=== PATIENT | male | born 1960 | race Caucasian/White ===

== ENCOUNTER 2017-02-05 14:26 | Inpatient (IN) | payer OTHER ==
[2017-02-05 16:48] VITALS: BMI 23.3
--- NOTE | 2017-02-05 18:28 | HP ---
COWS - Scale Resting Pulse: 0= [place] 80 or Below Sweatin=Flushed/Facial Moisture Restless Observation: 3= Extraneous Movement Pupil Size: 2= Moderately Dilated Bone or Joint Aches: 2= Severe Diffuse Aches Runny Nose/ Eye Tearin= Runny Nose/Eyes GI Upset > 30mins: 3= Vomiting/Diarrhea Tremor Observation: 2= Slight Tremor Visible Yawning Observation: 2= >3x During Session Anxiety or Irritability: 2=Irritable/Anxious Goose Flesh Skin: 0=Smooth Skin COWS Score: 20 Admission ROS BHS - HPI Chief Complaint: i need help to stop using heroin Allergies/Adverse Reactions: Allergies Allergy/AdvReac Type Severity Reaction Status Date / Time No Known Allergies Allergy Verified 02/05/17 16:50 History of Present Illness: this 56 years old male with heroin dependence and marijuana dependence,seeking detox,last treatment [facility] low back pain herniated disc ambulation with walker insomnia no significant period of sobriety Exam Limitations: No Limitations - Ebola screening Have you traveled outside of the country in the last 21 days: No Have you been sick,other than usual withdrawal symptoms: No - Review of Systems Constitutional: Chills, Loss of Appetite, Night Sweats, Changes in sleep, Weakness, Unintentional Wgt. Loss EENT: reports: Tearing, Nose Congestion Respiratory: reports: Other (asthma on albuterol inhaler) Cardiac: reports: No Symptoms Reported GI: reports: Diarrhea, Nausea, Vomiting, Abdominal cramping : reports: No Symptoms Reported Musculoskeletal: reports: Back Pain, Joint Pain, Muscle Pain, Joint Stiffness Integumentary: reports: Dryness Neuro: reports: Headache, Tremors Hematology: reports: No Symptoms Reported Psychiatric: reports: other (insomnia) Patient History - Patient Medical History Hx Anemia: No Hx Asthma: Yes (on albuterol inhaler) Hx Chronic Obstructive Pulmonary Disease (COPD): No Hx Cancer: No Hx Cardiac Disorders: No Hx Congestive Heart Failure: No Hx Hypertension: No Hx Hypercholesterolemia: No Hx Pacemaker: No HX Cerebrovascular Accident: No Hx Seizures: No Hx Dementia: No Hx Diabetes: No Hx Gastrointestinal Disorders: No Hx Liver Disease: No Hx Genitourinary Disorders: No Hx Sexually Transmitted Disorders: No Hx Renal Disease (ESRD): No Hx Thyroid Disease: No Hx Human Immunodeficiency Virus (HIV): No (01/28 negative) Hx Hepatitis C: No Hx Depression: No Hx Suicide Attempt: No Hx Bipolar Disorder: Yes Hx Schizophrenia: No Other Medical History: no suicidal,no homicidal - Patient Surgical History Past Surgical History: No Hx Neurologic Surgery: No Hx Cataract Extraction: No Hx Cardiac Surgery: No Hx Lung Surgery: No Hx Breast Surgery: No Hx Breast Biopsy: No Hx Abdominal Surgery: No Hx Appendectomy: No Hx Cholecystectomy: No Hx Genitourinary Surgery: No Hx Section: No Hx Orthopedic Surgery: No Anesthesia Reaction: No - PPD History Previous Implant?: Yes Documented Results: Negative w/o proof [facility] No PPD to be Administered?: Yes - Smoking Cessation Smoking history: Current every day smoker Have you smoked in the past 12 months: Yes Aproximately how many cigarettes per day: 20 Hx Chewing Tobacco Use: No Initiated information on smoking cessation: Yes 'Breaking Loose' booklet given: 02/05/17 - Substance & Tx. History Hx Alcohol Use: No Hx Substance Use: No Substance Use Type: Heroin, Marijuana Hx Substance Use Treatment: Yes (last [facility] 12/29 completed) - Substances Abused Heroin Route: Inhalation Frequency: Daily Amount used: 15 BAGS Age of first use: 19 Date of Last Use: 02/05/17 Marijuana/Hashish Route: Smoking Frequency: Daily Amount used: 10$ Age of first use: 19 Date of Last Use: 02/05/17 Family Disease History - Family Disease History Family History: Denies Admission Physical Exam S - Vital Signs Vital Signs: Vital Signs - 24 hr 02/05/17 16:46 Temperature 98.1 F Pulse Rate 60 Respiratory 18 Rate Blood Pressure 122/68 - Physical General Appearance: Yes: Moderate Distress, Tremorous, Irritable, Sweating, Anxious HEENTM: Yes: Normal ENT Inspection, SINCERE, Pharynx Normal Respiratory: Yes: Lungs Clear, Normal Breath Sounds, No Respiratory Distress Neck: Yes: Within Normal Limits, Supple, Trachea in good position Breast: Yes: Within Normal Limits Cardiology: Yes: Regular Rhythm, Regular Rate, S1, S2 Abdominal: Yes: Within Normal Limits, Normal Bowel Sounds, Non Tender, Soft Genitourinary: Yes: Within Normal Limits Back: Yes: Muscle Spasm Musculoskeletal: Yes: Back pain, Joint Stiffness, Muscle Pain Extremities: Yes: Tremors Neurological: Yes: product consultant II-XII NML intact, Alert, Motor Strength 5/5, Normal Mood /Affect Integumentary: Yes: Normal Color, Dry, Warm Lymphatic: Yes: Within Normal Limits - Diagnostic (1) Opioid dependence with withdrawal Current Visit: Yes Status: Acute (2) Cannabis dependence Current Visit: Yes Status: Acute (3) Bipolar disorder Current Visit: Yes Status: Acute (4) Insomnia Current Visit: Yes Status: Acute (5) Low back pain Current Visit: Yes Status: Acute (6) Herniated lumbar intervertebral disc Current Visit: Yes Status: Acute (7) Nicotine dependence Current Visit: Yes Status: Acute Cleared for Admission [facility] - Detox or Rehab [facility] Level of Care: Medically Managed Detox Regimen/Protocol: Methadone [facility] Breath Alcohol Content Breath Alcohol Content: 0 Urine Drug Screen - Results Drug Screen Negative: No Urine Drug Screen Results: THC-Marijuana, OPI-Opiates
[2017-02-05] MEDS ORDERED: MAG HYDROX/AL HYDROX/SIMETH 30 ML UNIT-DOSE CUP PO PRN (18:39)
[2017-02-05] MEDS ORDERED: hydrOXYzine PAMOATE 25 MG CAPSULE (FP) PO PRN (18:39)
[2017-02-05] MEDS ORDERED: guaiFENesin/D-METHORPHAN HB 10 ML UNIT-DOSE CUPS PO PRN (18:39)
[2017-02-05] MEDS ORDERED: MAGNESIUM HYDROX 2400MG/30ML ORAL SUSPENSION 30 ML CUP PO PRN (18:39)
[2017-02-05] MEDS ORDERED: P-EPHED 60MG/TRIPROLIDI 2.5MG TABLET PO PRN (18:39)
[2017-02-05] MEDS ORDERED: ACETAMINOPHEN 325 MG TABLET (FP) PO PRN (18:39)
[2017-02-05] MEDS ORDERED: MENTHOL/PHENOL 1 EACH UD MM PRN (18:39)
[2017-02-05] MEDS ORDERED: MAGNESIUM CITRATE 300 ML BOTTLE PO PRN (18:39)
[2017-02-05] MEDS ORDERED: LOPERAMIDE HCL 2 MG CAPSULE PO PRN (18:39)
[2017-02-05] MEDS ORDERED: IBUPROFEN 400 MG TABLET (FP) PO PRN (18:39)
[2017-02-05] MEDS ORDERED: METHADONE HCL 10 MG TABLET (FOR DETOX USE ONLY) PO ONE ×2 (19:00→23:00)
[2017-02-05] MEDS: NICOTINE 21 MG/24 HOURS TOPICAL PATCH TD SCH (20:11)
[2017-02-05] MEDS: THIAMINE HCL 100 MG TABLET (FP) PO SCH (22:38)
[2017-02-05] MEDS: cloNIDine HCL 0.1 MG TABLET PO SCH (22:38)
[2017-02-05] MEDS: diphenhydrAMINE HCL 50 MG CAPSULE PO PRN (22:40)
[2017-02-05 23:28] LABS: URINE APPEARANCE SLCLOUDY; URINE BILIRUBIN NEGATIVE (NEGATIVE); URINE BLOOD NEGATIVE (NEGATIVE); URINE COLOR YELLOW; URINE GLUCOSE (UA) NEGATIVE (NEGATIVE); URINE KETONE NEGATIVE (NEGATIVE); URINE LEUK ESTERASE NEGATIVE (NEGATIVE); URINE NITRITE NEGATIVE (NEGATIVE); URINE PROTEIN NEGATIVE (NEGATIVE); URINE UROBILINOGEN NEGATIVE mg/dL (0.2-1.0)
[2017-02-06] MEDS: diphenhydrAMINE HCL 50 MG CAPSULE PO PRN ×2 (02:38→22:12)
[2017-02-06] MEDS: diazePAM 5 MG TABLET PO PRN ×4 (02:38→22:12)
[2017-02-06] MEDS ORDERED: PRENATAL VITAMINS W/ FOLIC ACID TABLET (FP) PO SCH (10:00)
[2017-02-06] MEDS ORDERED: METHADONE HCL 10 MG TABLET (FOR DETOX USE ONLY) PO ONE (10:00)
[2017-02-06 10:21] LABS: MCHC 34.1 g/dl (32.0-35.9); MEAN CELL VOLUME 93.7 fl (80-96); MEAN PLT VOLUME 8.9 fl (7.5-11.1); PLATELET COUNT 231 K/MM3 (134-434); RDW 14.7 % (11.9-15.9); WHITE BLOOD COUNT 7.2 K/mm3 (4.0-10.0)
--- NOTE | 2017-02-06 10:25 | CONSULT ---
[facility] Psychiatric Consult - Data Date of interview: 02/06/17 Admission source: [facility] Identifying data: This is 56 years old male ambul;ating with walker, with history opf Bipolar disorder, with history of p[sychiatgric hospitalizations, intoxicated with: Heroin, Cannabis, Nicotine Substance Abuse History: - Smoking Cessation. Smoking history: Current every day smoker. Have you smoked in the past 12 months: Yes. Aproximately how many cigarettes per day: 20. Hx Chewing Tobacco Use: No. Initiated information on smoking cessation: Yes. 'Breaking Loose' booklet given: 02/05/17. - Substance & Tx. History. Hx Alcohol Use: No. Hx Substance Use: No. Substance Use Type: Heroin, Marijuana. Hx Substance Use Treatment: Yes (last [facility] 12/29 completed). - Substances Abused. Heroin. Route: Inhalation. Frequency: Daily. Amount used: 15 BAGS. Age of first use: 19. Date of Last Use: . Marijuana/Hashish. Route: Smoking. Frequency: Daily. Amount used: 10$ . Age of first use: 19. Date of Last Use: 02/05/17 Medical History: LBP, Multiple disks herniations at Lumbar area Psychiatric History: Patient reports to carry Bipolar Disorder with most recent psychiatric admission on 2015 at [facility] for safety, reports history of suicdal ideation and ettempts, with last one on [place] 3 years ago trying hailey hand himself, reports not using psychiatric medications for about a year, refusing pharmacological intervention at this time as well Physical/Sexual Abuse/Trauma History: Denies Additional Comment: Observation. Detox Unit Care Protocol Mental Status Exam - Mental Status Exam Alert and Oriented to: Person Cognitive Function: Fair Patient Appearance: Well Groomed Mood: Apprehensive Affect: Mood Congruent Patient Behavior: Cooperative Speech Pattern: Appropriate Voice Loudness: Normal Thought Process: Goal Oriented Thought Disorder: Being Controlled Hallucinations: Denies Suicidal Ideation: Denies Homicidal Ideation: Denies Insight/Judgement: Fair Sleep: Difficulty falling asleep Appetite: Weight loss Muscle strength/Tone: Moderate Hypotonicity Gait/Station: Ataxic Additional Comments: Observation. Detox Unit Care Protocol Psychiatric Findings - Problem List ([place] 1, 2,3) (1) Bipolar disorder Current Visit: Yes Status: Acute (2) Cannabis dependence Current Visit: Yes Status: Acute (3) Nicotine dependence Current Visit: Yes Status: Acute (4) Opioid dependence with withdrawal Current Visit: Yes Status: Acute (5) Drug-induced mood disorder Current Visit: Yes Status: Acute - Initial Treatment Plan Initial Treatment Plan: Observation. Detox Unit Care Protocol
[2017-02-06 10:45] LABS: ALBUMIN 2.9 g/dl (3.4-5.0); ALK PHOS 186 U/L (45-117); ANION GAP 6 (8-16); BILIRUBIN,TOTAL 0.3 mg/dL (0.2-1.0); CALCIUM 8.4 mg/dL (8.5-10.1); CO2 30 mmol/L (21-32); CREATININE 0.7 mg/dL (0.7-1.3); GLUCOSE,RANDOM 116 mg/dL (74-106); SGOT/AST 31 U/L (15-37); SGPT/ALT 53 U/L (12-78)
[2017-02-06] MEDS: NICOTINE 21 MG/24 HOURS TOPICAL PATCH TD SCH (11:05)
[2017-02-06] MEDS: CYCLOBENZAPRINE HCL 10 MG TABLET (FP) PO PRN ×2 (11:05→22:12)
[2017-02-06] MEDS: cloNIDine HCL 0.1 MG TABLET PO SCH ×2 (11:07→22:12)
--- NOTE | 2017-02-06 12:09 | PN ---
BHS COWS - Scale Resting Pulse: 0= [place] 80 or Below Sweatin= Chills/Flushing Restless Observation: 3= Extraneous Movement Pupil Size: 1= Pupils >than Normal Bone or Joint Aches: 2= Severe Diffuse Aches Runny Nose/ Eye Tearin= Runny Nose/Eyes GI Upset > 30mins: 2= Nausea/Diarrhea Tremor Observation of Outstretched Hands: 2= Slight Tremor Visible Yawning Observation: 1= 1-2x During Session Anxiety or Irritability: 2=Irritable/Anxious Goose Flesh Skin: 0=Smooth Skin COWS Score: 16 S Progress Note (SOAP) Subjective: ALERT,IRRITABLE,ANXIOUS,INTERRUPTED SLEEP,PAIN IN THE BODY AND BACK Objective: 02/06/17 12:07 Vital Signs Temperature 97.5 F L 02/06/17 10:05 Pulse Rate 52 L 02/06/17 10:05 Respiratory Rate 16 02/06/17 10:05 Blood Pressure 109/59 02/06/17 10:05 O2 Sat by Pulse Oximetry (%) EKG SINUS BRADYCARDIA 42/MIN NO CHEST PAIN,NO SOB,NO DIZZINESS Laboratory Last Values WBC 7.2 K/mm3 (4.0-10.0) 02/06/17 06:30 RBC 4.01 M/mm3 (4.00-5.60) 02/06/17 06:30 Hgb 12.8 GM/dL (11.7-16.9) 02/06/17 06:30 Hct 37.5 % (35.4-49) 02/06/17 06:30 MCV 93.7 fl (80-96) 02/06/17 06:30 MCH 32.0 pg (25.7-33.7) 02/06/17 06:30 MCHC 34.1 g/dl (32.0-35.9) 02/06/17 06:30 RDW 14.7 % (11.9-15.9) 02/06/17 06:30 Plt Count 231 K/MM3 (134-434) 02/06/17 06:30 MPV 8.9 fl (7.5-11.1) 02/06/17 06:30 Sodium 141 mmol/L (136-145) 02/06/17 06:30 Potassium 3.5 mmol/L (3.5-5.1) 02/06/17 06:30 Chloride 105 mmol/L (98-107) 02/06/17 06:30 Carbon Dioxide 30 mmol/L (21-32) 02/06/17 06:30 Anion Gap 6 (8-16) L 02/06/17 06:30 BUN 7 mg/dL (7-18) 02/06/17 06:30 Creatinine 0.7 mg/dL (0.7-1.3) 02/06/17 06:30 Creat Clearance w eGFR > 60 (>60) 02/06/17 06:30 Random Glucose 116 mg/dL (74-106) H 02/06/17 06:30 Calcium 8.4 mg/dL (8.5-10.1) L 02/06/17 06:30 Total Bilirubin 0.3 mg/dL (0.2-1.0) 02/06/17 06:30 AST 31 U/L (15-37) 02/06/17 06:30 ALT 53 U/L (12-78) 02/06/17 06:30 Alkaline Phosphatase 186 U/L (45-117) H 02/06/17 06:30 Total Protein 6.0 g/dl (6.4-8.2) L 02/06/17 06:30 Albumin 2.9 g/dl (3.4-5.0) L 02/06/17 06:30 Urine Color Yellow 02/05/17 20:00 Urine Appearance Slcloudy 02/05/17 20:00 Urine pH 8.0 (5.0-8.0) 02/05/17 20:00 Ur Specific [place] 1.020 (1.005-1.025) 02/05/17 20:00 Urine Protein Negative (NEGATIVE) 02/05/17 20:00 Urine Glucose (UA) Negative (NEGATIVE) 02/05/17 20:00 Urine Ketones Negative (NEGATIVE) 02/05/17 20:00 Urine Blood Negative (NEGATIVE) 02/05/17 20:00 Urine Nitrite Negative (NEGATIVE) 02/05/17 20:00 Urine Bilirubin Negative (NEGATIVE) 02/05/17 20:00 Urine Urobilinogen Negative mg/dL (0.2-1.0) 02/05/17 20:00 Ur Leukocyte Esterase Negative (NEGATIVE) 02/05/17 20:00 RPR Titer Nonreactive (NONREACTIVE) 02/06/17 06:30 Assessment: 02/06/17 12:08 WITHDRAWAL SYMPTOM Plan: CONTINUE DETOX
--- NOTE | 2017-02-06 12:23 | EKG ---
Test Reason : Blood Pressure : / mmHG Vent. Rate : 041 BPM Atrial Rate : 041 BPM P-R Int : 170 ms QRS Dur : 096 ms QT Int : 466 ms P-R-T Axes : 047 064 030 degrees QTc Int : 384 ms MARKED SINUS BRADYCARDIA INCOMPLETE RIGHT BUNDLE BRANCH BLOCK NONSPECIFIC T WAVE ABNORMALITY ABNORMAL ECG NO PREVIOUS ECGS AVAILABLE Confirmed by MINGO JOHNSON MD ([id number]) on 02/06/2017 12:22:52 PM Referred By: Confirmed By:MINGO JOHNSON MD
[2017-02-06] MEDS: THIAMINE HCL 100 MG TABLET (FP) PO SCH (22:12)
[2017-02-07] MEDS ORDERED: IBUPROFEN 600 MG TABLET (FP) PO PRN (08:04)
[2017-02-07] MEDS: CYCLOBENZAPRINE HCL 10 MG TABLET (FP) PO PRN (08:07)
[2017-02-07] MEDS ORDERED: LIDOCAINE 5% TOPICAL PATCH TP SCH (10:00)
[2017-02-07] MEDS ORDERED: METHADONE HCL 5 MG TABLET (FOR DETOX USE ONLY) PO ONE (10:00)
--- NOTE | 2017-02-07 10:12 | PN ---
S CIWA - CIWA Score Nausea/Vomitin Muscle Tremors: 3 Anxiety: 3 Agitation: 3 Paroxysmal Sweats: 1-Minimal Palms Moist Orientation: 0-Oriented Tacttile Disturbances: 1-Very Mild Itch/Numbness Auditory Disturbances: 1-Very Mild Visual Disturbances: 1-Very Mild Sensitivity Headache: 2-Mild CIWA-Ar Total Score: 18 BHS COWS - Scale Resting Pulse: 0= [place] 80 or Below Sweatin= Chills/Flushing Restless Observation: 3= Extraneous Movement Pupil Size: 1= Pupils >than Normal Bone or Joint Aches: 2= Severe Diffuse Aches Runny Nose/ Eye Tearin= Runny Nose/Eyes GI Upset > 30mins: 2= Nausea/Diarrhea Tremor Observation of Outstretched Hands: 2= Slight Tremor Visible Yawning Observation: 1= 1-2x During Session Anxiety or Irritability: 2=Irritable/Anxious Goose Flesh Skin: 0=Smooth Skin COWS Score: 16 S Progress Note (SOAP) Subjective: ALERT,IRRITABLE,ANXIOUS,INTERRUPTED SLEEP,TREMOR Objective: 02/07/17 10:11 Vital Signs Temperature 97 F L 02/07/17 07:01 Pulse Rate 52 L 02/07/17 07:01 Respiratory Rate 16 02/07/17 07:01 Blood Pressure 131/69 02/07/17 07:01 O2 Sat by Pulse Oximetry (%) Laboratory Last Values WBC 7.2 K/mm3 (4.0-10.0) 02/06/17 06:30 RBC 4.01 M/mm3 (4.00-5.60) 02/06/17 06:30 Hgb 12.8 GM/dL (11.7-16.9) 02/06/17 06:30 Hct 37.5 % (35.4-49) 02/06/17 06:30 MCV 93.7 fl (80-96) 02/06/17 06:30 MCH 32.0 pg (25.7-33.7) 02/06/17 06:30 MCHC 34.1 g/dl (32.0-35.9) 02/06/17 06:30 RDW 14.7 % (11.9-15.9) 02/06/17 06:30 Plt Count 231 K/MM3 (134-434) 02/06/17 06:30 MPV 8.9 fl (7.5-11.1) 02/06/17 06:30 Sodium 141 mmol/L (136-145) 02/06/17 06:30 Potassium 3.5 mmol/L (3.5-5.1) 02/06/17 06:30 Chloride 105 mmol/L (98-107) 02/06/17 06:30 Carbon Dioxide 30 mmol/L (21-32) 02/06/17 06:30 Anion Gap 6 (8-16) L 02/06/17 06:30 BUN 7 mg/dL (7-18) 02/06/17 06:30 Creatinine 0.7 mg/dL (0.7-1.3) 02/06/17 06:30 Creat Clearance w eGFR > 60 (>60) 02/06/17 06:30 Random Glucose 116 mg/dL (74-106) H 02/06/17 06:30 Calcium 8.4 mg/dL (8.5-10.1) L 02/06/17 06:30 Total Bilirubin 0.3 mg/dL (0.2-1.0) 02/06/17 06:30 AST 31 U/L (15-37) 02/06/17 06:30 ALT 53 U/L (12-78) 02/06/17 06:30 Alkaline Phosphatase 186 U/L (45-117) H 02/06/17 06:30 Total Protein 6.0 g/dl (6.4-8.2) L 02/06/17 06:30 Albumin 2.9 g/dl (3.4-5.0) L 02/06/17 06:30 Urine Color Yellow 02/05/17 20:00 Urine Appearance Slcloudy 02/05/17 20:00 Urine pH 8.0 (5.0-8.0) 02/05/17 20:00 Ur Specific [place] 1.020 (1.005-1.025) 02/05/17 20:00 Urine Protein Negative (NEGATIVE) 02/05/17 20:00 Urine Glucose (UA) Negative (NEGATIVE) 02/05/17 20:00 Urine Ketones Negative (NEGATIVE) 02/05/17 20:00 Urine Blood Negative (NEGATIVE) 02/05/17 20:00 Urine Nitrite Negative (NEGATIVE) 02/05/17 20:00 Urine Bilirubin Negative (NEGATIVE) 02/05/17 20:00 Urine Urobilinogen Negative mg/dL (0.2-1.0) 02/05/17 20:00 Ur Leukocyte Esterase Negative (NEGATIVE) 02/05/17 20:00 RPR Titer Nonreactive (NONREACTIVE) 02/06/17 06:30 Assessment: 02/07/17 10:11 WITHDRAWAL SYMPTOM Plan: CONTINUE DETOX
--- NOTE | 2017-02-07 10:17 | PN ---
[facility] Progress Note Note: ADDENDUM PATIENT DID NOT WANT TO COMPLETE TREATMENT,SEEN BY COUNSELOR,DID NOT WANT TO GIVE REASON WHY HE IS LEAVING,SIGNED RELEASE AMA
--- NOTE | 2017-02-07 10:30 | DS ---
[facility] Detox Discharge Summary Admission Date: 02/05/17 Discharge Date: 02/07/17 - History Present History: Cannabis Dependence, Opioid Dependence Additional Comments: PATIENT DID NOT WANT TO COMPLETE TREATMENT,SEEN BY COUNSELOR,SIGNED RELEASE AMA Pertinent Past History: LOW BACK PAIN HERNIATED LUMBAR DISC NICOTINE DEPENDENCE BIPOLAR DISORDER INSOMNIA - Physical Exam Results Vital Signs: Vital Signs Temperature 97 F L 02/07/17 07:01 Pulse Rate 52 L 02/07/17 07:01 Respiratory Rate 16 02/07/17 07:01 Blood Pressure 131/69 02/07/17 07:01 O2 Sat by Pulse Oximetry (%) Pertinent Admission Physical Exam Findings: WITHDRAWAL SYMPTOM - Medication Discharge Medications: Ambulatory Orders Unobtainable [Unobtainable] 02/05/17 - Diagnosis (1) Opioid dependence with withdrawal Current Visit: Yes Status: Acute (2) Cannabis dependence Current Visit: Yes Status: Acute (3) Bipolar disorder Current Visit: Yes Status: Acute (4) Insomnia Current Visit: Yes Status: Acute (5) Low back pain Current Visit: Yes Status: Acute (6) Herniated lumbar intervertebral disc Current Visit: Yes Status: Acute (7) Nicotine dependence Current Visit: Yes Status: Acute - AMA Did Patient Leave Against Medical Advice: Yes
[2017-02-07 10:54] VITALS: BP 120/63; PULSE 49; TEMP 98.1
[2017-02-07] MEDS ORDERED: LIDOCAINE PATCH REMOVAL MC SCH (22:00)
[2017-02-08] MEDS ORDERED: METHADONE HCL 5 MG TABLET (FOR DETOX USE ONLY) PO ONE (10:00)
[2017-02-09] MEDS ORDERED: METHADONE HCL 10 MG TABLET (FOR DETOX USE ONLY) PO ONE (10:00)
[2017-02-10] MEDS ORDERED: METHADONE HCL 5 MG TABLET (FOR DETOX USE ONLY) PO ONE (06:00)
== END 2017-02-07 10:45 | disposition left against medical advice (07) | DRG 894 ==
LOC: YASAS 14:26 → Y6N 18:14
PROVIDERS: ADMIT Internal Medicine; ATTEND Internal Medicine
PROC: HZ2ZZZZ Detoxification Services for Substance Abuse Treatment (ICD-10-PCS; principal; 2017-02-07)
DX: F11.23 Opioid dependence with withdrawal (principal); F12.20 Cannabis dependence, uncomplicated; F17.210 Nicotine dependence, cigarettes, uncomplicated; F19.24 Other psychoactive substance dependence with psychoactive substance-induced mood disorder; F31.9 Bipolar disorder, unspecified; R00.1 Bradycardia, unspecified; G47.00 Insomnia, unspecified; J45.909 Unspecified asthma, uncomplicated; M54.5 Low back pain; M51.26 Other intervertebral disc displacement, lumbar region
CPT/HCPCS: 36415; 80053; 81003; 85027; 86593; 93005; 93010

== ENCOUNTER 2022-02-20 17:52 | Inpatient (IN) | payer OTHER ==
[2022-02-20 18:58] VITALS: BMI 25.7
[2022-02-20] MEDS ORDERED: IBUPROFEN 400 MG TABLET (FP) PO PRN (19:20)
[2022-02-20] MEDS ORDERED: MAG HYDROX/AL HYDROX/SIMETH 30 ML UNIT-DOSE CUP PO PRN (19:20)
[2022-02-20] MEDS ORDERED: cloNIDine HCL 0.1 MG TABLET PO PRN (19:20)
[2022-02-20] MEDS ORDERED: LOPERAMIDE HCL 2 MG CAPSULE PO PRN (19:20)
[2022-02-20] MEDS ORDERED: DICYCLOMINE HCL 10 MG CAPSULE PO PRN (19:20)
[2022-02-20] MEDS ORDERED: IBUPROFEN 600 MG TABLET (FP) PO PRN (19:20)
[2022-02-20] MEDS ORDERED: MAGNESIUM CITRATE 300 ML BOTTLE PO PRN (19:20)
[2022-02-20] MEDS ORDERED: BISMUTH SUBSALICYLATE 524 MG/30 ML PO PRN (19:20)
[2022-02-20] MEDS ORDERED: MAGNESIUM HYDROX 2400MG/30ML ORAL SUSPENSION 30 ML CUP PO PRN (19:20)
[2022-02-20] MEDS ORDERED: ONDANSETRON *ODT* 4 MG TABLET SL PRN (19:20)
[2022-02-20] MEDS ORDERED: METHOCARBAMOL 500 MG TABLET PO PRN (19:20)
[2022-02-20] MEDS ORDERED: ACETAMINOPHEN 325 MG TABLET (FP) PO PRN ×2 (19:20)
[2022-02-20] MEDS ORDERED: BENZOCAINE/MENTHOL (CHLORASEPTIC ) LOZENGE MM PRN (19:20)
[2022-02-20] MEDS ORDERED: MELATONIN 5 MG TABLETS PO SCH (22:00)
[2022-02-20] MEDS ORDERED: THIAMINE HCL 100 MG TABLET (FP) PO SCH (22:00)
[2022-02-21] MEDS: hydrOXYzine PAMOATE 25 MG CAPSULE (FP) PO SCH ×4 (02:24→14:46)
[2022-02-21] MEDS ORDERED: PRENATAL VITAMINS W/ FOLIC ACID TABLET (FP) PO SCH (10:00)
[2022-02-21] MEDS ORDERED: chlorproMAZINE HCL 25 MG TABLET PO SCH (10:00)
[2022-02-21 10:07] LABS: HEMATOCRIT 36.3 % (35.4-49); HEMOGLOBIN 12.3 GM/dL (11.7-16.9); MCH 31.4 pg (25.7-33.7); MEAN CELL VOLUME 92.2 fl (80-96); MEAN PLT VOLUME 9.6 fl (7.5-11.1); PLATELET COUNT 187 10^3/uL (134-434); RBC 3.93 M/mm3 (4.00-5.60); WHITE BLOOD COUNT 5.5 K/mm3 (4.0-10.0)
[2022-02-21 11:35] LABS: CALCIUM 8.7 mg/dL (8.5-10.1)
[2022-02-21 11:36] LABS: ALBUMIN 3.1 g/dl (3.4-5.0); BLOOD UREA NITROGEN 16.5 mg/dL (7-18)
[2022-02-21 11:39] LABS: CREATININE 0.8 mg/dL (0.55-1.3)
[2022-02-21 11:40] LABS: BILIRUBIN,TOTAL 0.4 mg/dL (0.2-1); TOT PROT 6.3 g/dl (6.4-8.2)
[2022-02-21 13:41] VITALS: RESP 17
[2022-02-21 17:36] VITALS: BP 122/61; PULSE 66; TEMP 97.7
[2022-02-21] MEDS ORDERED: risperiDONE 2 MG TABLET PO SCH (22:00)
== END 2022-02-21 17:42 | disposition home or self-care (01) | DRG 897 ==
LOC: YASAS 17:52 → Y6N 22:29
PROVIDERS: ADMIT Allergy & Immunology; ATTEND Surgery
PROC: HZ2ZZZZ Detoxification Services for Substance Abuse Treatment (ICD-10-PCS; principal; 2022-02-20)
DX: F11.23 Opioid dependence with withdrawal (principal); F14.20 Cocaine dependence, uncomplicated; F12.20 Cannabis dependence, uncomplicated; F17.213 Nicotine dependence, cigarettes, with withdrawal; F20.9 Schizophrenia, unspecified; M54.50 Low back pain, unspecified; G89.29 Other chronic pain; Z56.0 Unemployment, unspecified
CPT/HCPCS: 36415; 80053; 85027; 86780; C9803-CS; U0003; U0005